=== PATIENT | female | born 1960 | race Two or more races ===

== ENCOUNTER 2018-10-11 12:37 | Inpatient (IN) | payer OTHER ==
[~2018-10-11] VITALS: Ht 154.9 cm; Wt 84.8 kg
[2018-10-30] MEDS ORDERED: ZANTAC300 MG PO (12:04)
[2018-10-30] MEDS ORDERED: PROZAC20 MG PO (12:04)
[2018-10-30] MEDS ORDERED: GRALISE600 MG PO (12:04)
[2018-10-30] MEDS ORDERED: FINOFIBRATE PO (12:05)
[2018-10-30] MEDS ORDERED: CLONAZEPAM1 M1 PO (12:05)
[2018-10-30] MEDS ORDERED: ATORVASTATIN CA40 MG PO (12:06)
[2018-10-30] MEDS ORDERED: FOLGARD TABLET1 EACH PO (12:06)
[2018-11-07] MEDS ORDERED: FENOFIBRATE160 MG PO (07:56)
[2018-11-11] MEDS ORDERED: INTESTINEX680 M1 PO (14:41)
[2018-11-11] MEDS ORDERED: PERCOCET 5-3251 EACH PO (14:41)
== END 2018-11-11 15:37 | disposition home or self-care (01) | DRG 331 ==
LOC: SURG 10-30 08:30 → O/R 11-07 06:52 → SURH 11-07 06:52 → SURG 11-07 07:00 → SURH 11-07 14:56
PROVIDERS: Urology; ADMIT Surgery
PROC: 0T788DZ Dilation of Bilateral Ureters with Intraluminal Device, Via Natural or Artificial Opening Endoscopic (ICD-10-PCS; 2018-11-07)
PROC: 0DTN4ZZ Resection of Sigmoid Colon, Percutaneous Endoscopic Approach (ICD-10-PCS; principal; 2018-11-07 07:00)
PROC: 0DJD8ZZ Inspection of Lower Intestinal Tract, Via Natural or Artificial Opening Endoscopic (ICD-10-PCS; 2018-11-07 07:00)
DX: K57.20 Diverticulitis of large intestine with perforation and abscess without bleeding (principal); E78.00 Pure hypercholesterolemia, unspecified; I11.9 Hypertensive heart disease without heart failure

== ENCOUNTER 2020-01-28 06:20 | Day surgery (SDC) | payer OTHER ==
[~2020-01-28 06:20] MED LIST: ATORVASTATIN CA40 MG PO; CLONAZEPAM1 M1 PO; FENOFIBRATE160 MG PO; FINOFIBRATE PO; FOLGARD TABLET1 EACH PO; GRALISE600 MG PO; INTESTINEX680 M1 PO; PERCOCET 5-3251 EACH PO; PROZAC20 MG PO; ZANTAC300 MG PO
== END 2020-01-28 10:50 | disposition home or self-care (01) ==
LOC: AMB-ENDOS 06:20
PROVIDERS: ATTEND Surgery
DX: D12.2 Benign neoplasm of ascending colon (principal); D12.4 Benign neoplasm of descending colon; Z20.828 Contact with and (suspected) exposure to other viral communicable diseases